=== PATIENT | female | born 1935 | race Caucasian/White ===

== ENCOUNTER 2018-10-04 06:42 | Inpatient (IN) | payer OTHER ==
[~2018-10-04] VITALS: Ht 162.6 cm; Wt 65.8 kg
[2018-10-04] VITALS (11 sets, daily range): BP systolic 128–156; BP diastolic 53–95
[2018-10-04] MEDS ORDERED: AMLODIPINE BESY10 MG PO (06:56)
[2018-10-04] MEDS ORDERED: ASPIR 8181 MG PO (06:57)
[2018-10-04] MEDS ORDERED: OMEPRAZOLE40 MG PO (06:59)
[2018-10-04] MEDS ORDERED: REMERON15 MG PO (06:59)
[2018-10-04] MEDS ORDERED: ADVAIR 250-501 EACH INH (07:01)
[2018-10-04] MEDS ORDERED: MAGOX 400400 MG PO (07:01)
[2018-10-04] MEDS ORDERED: ALPHAGAN P5 ML OPHTHALMIC (07:03)
[2018-10-04] MEDS ORDERED: DORZOLAMIDE 2%10 ML INTRAOCULR (07:03)
[2018-10-04 07:05] LABS: HEMOGLOBIN 11.3 gm/dL (12.0-15.0); MCH 24.5 pg (26.0-34.0); MCHC 31.4 g/dL (28.0-37.0); RBC 4.62 mil/uL (4.20-5.00); RDW 16.4 % (10.5-14.5); WBC 6.4 thou/uL (4.0-11.0)
[2018-10-04 07:15] LABS: CALCIUM 9.6 mg/dL (8.5-10.1); CREATININE 1.6 mg/dL (0.6-1.0); POTASSIUM 4.4 mmol/L (3.5-5.1)
--- NOTE | 2018-10-04 09:31 | EKG ---
[address] [address] ELECTROCARDIOGRAM REPORT Name: ELEAZAR SCOTT Room #: [facility]#: [id number] ������������������ Admission: 10/04/18 ������������������ Attend Phys: Kurt Torres MD, Discharge: ������������������ Date of : 31 Report #: [id number] ����������������������������������������������������������������� [id number] THIS REPORT FOR: //name// [facility] Test Date: 2018-10-04 Test Time: 07:19:51 Pat Name: ELEAZAR TYLER Department: Room: Gender: F Layer Up: Cierra CARRANZA : 1935 Requested By: Kurt Torres Order Number: [id number] MD: Brenden Miller Measurements Intervals [place] Rate: 77 P: 52 CT: 145 QRS: -15 QRSD: 74 T: 19 QT: 402 QTc: 455 Interpretive Statements Sinus rhythm Inferior infarct, old Compared to ECG 09/24/2007 12:27:44 Atrial abnormality no longer present Poor R-wave progression no longer present Electronically Signed On 10-04-2018 9:31:35 CDT by Brenden Miller [email or web address] ��������������������������������������������� <ELECTRONICALLY SIGNED> ���������������������������������������� By: Brenden Miller MD, [facility] ��������������������������������������������� 10/04/18 0931 8 8 Brenden Miller MD, [facility] /EPI
--- NOTE | 2018-10-04 17:00 | CATHLAB ---
[facility] [place] [address] INVASIVE PROCEDURE REPORT Name: ELEAZAR SCOTT Room #: 203-P [facility] IN [facility]#: [id number] ������������� Admission: 10/04/18 ������������� Attend Phys: Kurt Torres, Discharge: ��� ������������� ��� Date of : 31 Date of Service: 10/04/18 1659 �� Report #: [id number] �������� ��������������������������������������������[id number] THIS REPORT FOR: //name// APPROVED REPORT Study performed: 10/04/2018 09:25:17 Patient Details The patient is a 83 year-old female Event Personnel Kurt Torres Personnel Adviser Procedures Performed Right and Left Heart Cath w/or w/o Coronarie [id number] [facility] Indication Chest pain Procedure Narrative The Right Groin^ was infiltrated with 1% Lidocaine subcutaneous anesthesia. A Right Heart Catheterization was performed with a 7 Fr. [place] catheter and pressure were recorded. Cardiac outputs were obtained by the Thermal Dilution method. A PINNACLE 6FR TIF Sheath #[id number] sheath was inserted into the right femoral artery. Coronary angiography was performed using coronary diagnostic catheters. The right coronary system was accessed and visualized with a JR4 catheter. The left coronary system was accessed and visualized with a JL4 catheter. The left ventricle was accessed and visualized with a PIGTAIL catheter. Left ventricular/Aortic Valve gradient assessed via catheter pullback. Left ventriculogram was performed in SIMPSON projection. Closure device was deployed with a Fr 6F Fish closure. The patient tolerated the procedure well and there were no complications associated with the procedure. There was no hematoma. Intraoperative Conscious Sedation Sedation start time: 934 Case end Time: 1010 Fentanyl 25 mcg Versed 0.5 mg Fluoro Time: 10.20 minutes Dose: DAP 42545.90 cGycm2 235 mGy Contrast Type and Amount: Visipaque 90 ml [facility] [place] [address] INVASIVE PROCEDURE REPORT Name: ELEAZAR SCOTT Room #: 203-P [facility] IN .R.#: [id number] ������������� Admission: 10/04/18 ������������� Attend Phys: Kurt Torres, Discharge: ��� ������������� ��� Date of : 31 Date of Service: 10/04/18 1659 �� Report #: [id number] �������� ��������������������������������������������[id number] Hemodynamics The right atrial mean pressure is 16 mmHg. The right ventricular pressure is 22/11 mmHg. The pulmonary artery pressure is 50/16 mmHg with a mean of 31 mmHg. The mean pulmonary capillary wedge pressure is 19 mmHg. The aortic pressure is 164/58 mmHg with a mean of 76 mmHg. The left ventricular pressure is 170/15 mmHg with a mean of mmHg. The left ventricular end diastolic pressure is 20 mmHg. The cardiac output using thermo method is 4.80 L/min. The cardiac index using thermo method is 2.80 L/min/m2. PCI Technique Lesion Percutaneous coronary intervention was performed on the Superficial Femoral. Conclusion #1 successful right heart catheterization see hemodynamics above. #2 normal left jugular size and systolic function EF 60% #3 left main large free of disease giving rise to LAD and circumflex #4 LAD is moderately calcified and eccentric proximal lesion of 70-75% with otherwise preserved distal vessel moderately diseased extends around the apex #5 circumflex OM heavy proximal calcic H with mild disease 1 large OM branch well-preserved #6 dominant right coronary is occluded looks to be chronic total occlusion with some bridging collaterals faintly filling the PDA. The PDA is predominantly filled via brisk collateral flow from the left system. Recommendations and plan continue aggressive risk factor modification. This appears to be an old limited infarct with excellent collateral flow. There is moderate disease in the circumflex in the proximal LAD will follow. No current indication for intervention. Pulmonary pressures are not significantly elevated. Limited contrast was utilized. There will be a intervention to left popliteal distal SFA see Dr. Morrison's dictation ��������������������������������������������� <ELECTRONICALLY SIGNED> ���������������������������������������� By: Kurt Torres MD, FACC ��������������������������������������������� 10/04/181658 58 58 Kurt Torres MD, FACC /INF
--- NOTE | 2018-10-04 17:38 | NUR ---
PT ADMITED FROM CARDIAC CATH. ALERT AND ORIENTED. ADMISSION HX AND ASSESSMENT COMPLETED. VSS. RIGHT GROIN INCISION C/D/. NO HEMATOMA NOTED. PT UNABLE TO URINATE. BLADDER SCAN SHOWED 590. DR. VILLA NOTIFIED. ORDERS GIVEN TO STRAIGHT CATH. 650CC URINE OUTPUT WITH STRAIGHT CATH. PT INSTRUCTED TO IMMOBILIZE THE RIGHT LEG. ON BEDREST. DENIES HAVING PAIN OR DISCOMFORT. WILL CONTINUE TO MONITOR.
[2018-10-05 00:44] VITALS: BP 156/77
[2018-10-05 00:45] VITALS: BP 156/77
--- NOTE | 2018-10-05 02:37 | NUR ---
ASSESSMENT DOCUMENTED.PT RESTING IN NO ACUTE DISTRESS.VSS.RIGHT GROIN WITH CDI DRESSING.NO HEMATOMA NOTED.PULSES PRESENT 2+.UP TO BSC WITH ASSIST.SR ON MONITOR,IVF INFUSING.PT DENIES PAIN OR ANY DISTRESS AT THIS TIME.POSSIBLE DISCHARGE TODAY.WILL CONT TO MONITOR PER POC.
[2018-10-05 04:44] VITALS: BP 148/97
[2018-10-05 05:03] LABS: HEMATOCRIT 29.5 % (37.0-47.0); HEMOGLOBIN 9.5 gm/dL (12.0-15.0); MCH 25.3 pg (26.0-34.0); MCHC 32.4 g/dL (28.0-37.0); MCV 78.2 fL (80.0-100.0); RBC 3.77 mil/uL (4.20-5.00); RDW 16.6 % (10.5-14.5); WBC 5.9 thou/uL (4.0-11.0)
[2018-10-05 05:08] VITALS: BP 156/77
[2018-10-05 05:15] LABS: CALCIUM 8.5 mg/dL (8.5-10.1); CREATININE 1.3 mg/dL (0.6-1.0); POTASSIUM 4.2 mmol/L (3.5-5.1)
[2018-10-05 07:20] VITALS: BP 142/50
[2018-10-05] MEDS ORDERED: CRESTOR20 MG PO (07:50)
[2018-10-05] MEDS ORDERED: CLOPIDOGREL75 MG PO (07:50)
[2018-10-05] MEDS ORDERED: LIPITOR 20 MG T20 M1 PO (07:54)
[2018-10-05 10:08] VITALS: BP 142/50
--- NOTE | 2018-10-05 10:28 | NUR ---
ASSESSMENT DOCUMENTED. PT ALERT AND ORIENTED. VSS. DENIED HAVING PAIN OR DISCOMFORT. RIGHT GROIN INCISION C/D/I. NO HEMATOMA NOTED. ORDERS GIVEN TO DISCHARGE PT TO HOME. DISCHARGE INSTRUCTIONS GIVEN TO PT. PT VERBERLIZE UNDERSTANDING. PT LEFT THE FACILITY ACCOMPANIED BY THE DAUGHTER.
--- NOTE | 2018-10-05 10:36 | H ---
[facility] [place] [address] HISTORY AND PHYSICAL Name: ELEAZAR SCOTT Room #: 203-P [facility] M.R.#: [id number] Admission: 10/04/18 ������������������ Attend Phys: Kurt Torres MD, Discharge: 10/05/18 ������������������ Date of : 31 Report #: [id number] THIS REPORT FOR: //name// CC: Kurt Bear MD DATE OF SERVICE: 10/04/2018 HISTORY OF PRESENT ILLNESS: The patient is an 83-year-old female patient of geovani and Dr. Bear. Admitted today for right and left heart catheterization and lower extremity runoff. The patient previously was seen a couple of months ago for some dyspnea and shortness of breath. She had recently moved back to [place], but has now moved back to [place]. She complains of fatigue, some shortness of breath and some questionable chest pressure, although intermittent. Multiple risk factors for coronary artery disease, but does not have a history of an infarct. The nuclear stress test suggests limited inferior, inferoseptal infarct with izabela-infarct ischemia. There is no knowledge of any prior infarct, but she again had been in [place] for the last 10 years. Hypertension, hypercholesterolemia and some progressive shortness of breath. Had some underlying COPD and intermittent steroids over the past. Also, has paroxysmal AFib. MEDICATIONS: Amlodipine 10, baby aspirin, Azopt, Alphagan eyedrops, Advair Diskus, Remeron, Aleve p.r.n., Prilosec and metoprolol 25. PAST MEDICAL HISTORY: Positive for hypertension, paroxysmal atrial fibrillation. She is not anticoagulated; we do not have documentation of this since she has been back. Glaucoma, gout, pyelonephritis, anal fistulotomy, appendectomy, MALIKA-BSO and total knee. FAMILY HISTORY: Father had heart failure and hypertension. Brother did have premature coronary disease. SOCIAL HISTORY: She has moved back to [place]. Her daughter is Mago Sparks. No alcohol or tobacco use, never smoked. One cup of coffee a day. She has 2 daughters. She is . REVIEW OF SYSTEMS: Negative, except for stated above, with some intermittent urine area issues. ALLERGIES: No known drug allergies. PHYSICAL EXAMINATION: GENERAL: She is pleasant and alert. VITAL SIGNS: Pulse 70s, blood pressure 148/82. [facility] [address] [place] [address] HISTORY AND PHYSICAL Name: ELEAZAR SCOTT Room #: 203-P [facility].#: [id number] Admission: 10/04/18 ������������������ Attend Phys: Kurt Torres MD, Discharge: 10/05/18 ������������������ Date of : 31 Report #: [id number] HEENT: Eyes reveal no xanthelasmas. Pharynx is clear. NECK: Shows preserved upstrokes, without JVD or bruits. LUNGS: Clear, slightly prolonged phase. CARDIAC: Regular rate and rhythm, S1, S2. Faint holosystolic murmur. ABDOMEN: Soft. No HSM or abdominal bruit. EXTREMITIES: Reveal trace of edema. Distal pulses are diminished. I cannot palpate the left DP and PT. NEUROLOGIC: Nonfocal. SKIN: Warm and dry. There were some mild venous stasis changes. No ulcers. ASSESSMENT: 1. Coronary artery disease with nuclear test suggesting old inferior infarct (of unknown duration). 2. Hypertension. 3. History of paroxysmal atrial fibrillation, although nothing documented since she has returned to [place]. 4. Peripheral vascular disease with a left popliteal high-grade stenosis, with some stable claudication. 5. Hypercholesterolemia. 6. Chronic kidney disease. RECOMMENDATIONS AND PLAN: We will proceed to the catheterization lab for right and left heart catheterization. There is some chronic kidney disease here, with a creatinine of 1.6. IV hydration has been given. We will limit contrast. Risks, benefits and alternatives discussed with the patient and her daughter. We will have further recommendations after this procedure. Thank you for asking us to assist in the care of this patient. ��������������������������������������������� <ELECTRONICALLY SIGNED> ���������������������������������������� By: Kurt Torres MD, FACC ��������������������������������������������� 10/05/18 1036 1012 1100 Kurt Torres MD, FACC /nt
== END 2018-10-05 10:25 | disposition home or self-care (01) | DRG 271 ==
LOC: CATH 06:42 → 2N 13:22 → CATH 15:29 → ENTRNSPT 10-05 10:16 → EDTRNSPTSTS 10-05 10:22 → 2N 10-05 10:25
PROVIDERS: Nuclear Medicine Nuclear Cardiology; ADMIT Internal Medicine Cardiovascular Disease
PROC: B211YZZ Fluoroscopy of Multiple Coronary Arteries using Other Contrast (ICD-10-PCS; principal; 2018-10-04)
PROC: 04CN3ZZ Extirpation of Matter from Left Popliteal Artery, Percutaneous Approach (ICD-10-PCS; principal; 2018-10-04)
PROC: 047N3D1 Dilation of Left Popliteal Artery with Intraluminal Device, using Drug-Coated Balloon, Percutaneous Approach (ICD-10-PCS; principal; 2018-10-04)
PROC: 4A023N8 Measurement of Cardiac Sampling and Pressure, Bilateral, Percutaneous Approach (ICD-10-PCS; principal; 2018-10-04)
PROC: B215YZZ Fluoroscopy of Left Heart using Other Contrast (ICD-10-PCS; principal; 2018-10-04)
PROC: B4181ZZ Fluoroscopy of Bilateral Renal Arteries using Low Osmolar Contrast (ICD-10-PCS; principal; 2018-10-04)
PROC: B4101ZZ Fluoroscopy of Abdominal Aorta using Low Osmolar Contrast (ICD-10-PCS; principal; 2018-10-04)
DX: I73.9 Peripheral vascular disease, unspecified (principal); D62 Acute posthemorrhagic anemia; I25.10 Atherosclerotic heart disease of native coronary artery without angina pectoris; E78.00 Pure hypercholesterolemia, unspecified; I48.0 Paroxysmal atrial fibrillation; H40.9 Unspecified glaucoma; I12.9 Hypertensive chronic kidney disease with stage 1 through stage 4 chronic kidney disease, or unspecified chronic kidney disease; M10.9 Gout, unspecified; N18.9 Chronic kidney disease, unspecified; S30.1XXA Contusion of abdominal wall, initial encounter; X58.XXXA Exposure to other specified factors, initial encounter; Y93.89 Activity, other specified; Y92.89 Other specified places as the place of occurrence of the external cause; Y99.8 Other external cause status; Z79.82 Long term (current) use of aspirin; Z79.899 Other long term (current) drug therapy; Z90.49 Acquired absence of other specified parts of digestive tract; Z90.722 Acquired absence of ovaries, bilateral; Z82.49 Family history of ischemic heart disease and other diseases of the circulatory system
CPT/HCPCS: 10081

== ENCOUNTER 2019-02-01 14:21 | Inpatient (IN) | payer OTHER ==
[~2019-02-01] VITALS: Ht 162.6 cm; Wt 64.9 kg
[~2019-02-01 14:21] MED LIST: ADVAIR 250-501 EACH INH; ALPHAGAN P5 ML OPHTHALMIC; AMLODIPINE BESY10 MG PO; ASPIR 8181 MG PO; CLOPIDOGREL75 MG PO; CRESTOR20 MG PO; DORZOLAMIDE 2%10 ML INTRAOCULR; LIPITOR 20 MG T20 M1 PO; MAGOX 400400 MG PO; OMEPRAZOLE40 MG PO; REMERON15 MG PO
[2019-02-01 14:25] VITALS: BP 127/61
[2019-02-01 15:05] LABS: HEMATOCRIT 33.8 % (37.0-47.0); HEMOGLOBIN 10.7 gm/dL (12.0-15.0); MCH 24.2 pg (26.0-34.0); MCHC 31.6 g/dL (28.0-37.0); MCV 76.8 fL (80.0-100.0); RBC 4.4 mil/uL (4.20-5.00); RDW 17.5 % (10.5-14.5); WBC 6.3 thou/uL (4.0-11.0)
[2019-02-01 15:11] LABS: ANION GAP 11 mmol/L (7-16); BUN 22 mg/dL (7-18); CALCIUM 9.4 mg/dL (8.5-10.1); CHLORIDE 106 mmol/L (98-107); CO2 22 mmol/L (21-32); CREATININE 1.5 mg/dL (0.6-1.0); GLUCOSE 104 mg/dL (74-106); SODIUM 139 mmol/L (136-145)
[2019-02-01 15:19] LABS: PROTIME 10.7 Seconds (9.3-11.4); TROPONIN-I <0.06 ng/mL (<0.06)
[2019-02-01] MEDS ORDERED: TOPROL XL25 MG PO (15:32)
[2019-02-01] MEDS ORDERED: XARELTO15 MG PO (15:33)
[2019-02-01 18:26] VITALS: BP 136/56
[2019-02-01 22:58] VITALS: BP 146/60
[2019-02-01 23:30] VITALS: BP 153/68
[2019-02-02] MEDS ORDERED: LOSARTAN POTAS100 MG PO (00:17)
[2019-02-02] MEDS ORDERED: ASPIR 8181 MG PO (00:19)
[2019-02-02] MEDS ORDERED: NORVASC5 MG PO (00:19)
[2019-02-02] MEDS ORDERED: OMEPRAZOLE40 MG PO (00:23)
[2019-02-02] MEDS ORDERED: MAGOX 400400 MG PO (00:23)
[2019-02-02] MEDS ORDERED: LIPITOR 20 MG T20 M1 PO (00:24)
[2019-02-02] MEDS ORDERED: DORZOLAMIDE 2%10 ML OPHTHALMIC (00:25)
[2019-02-02 04:38] VITALS: BP 141/71
[2019-02-02 04:48] LABS: BASOPHILS 1.3 % (0.0-2.0); EOSINOPHILS 3.8 % (0.0-3.0); HEMATOCRIT 30.3 % (37.0-47.0); HEMOGLOBIN 9.7 gm/dL (12.0-15.0); LYMPHOCYTES 21.8 % (24.0-44.0); MCH 24.5 pg (26.0-34.0); MCV 76.6 fL (80.0-100.0); MONOCYTES 8.5 % (1.0-8.0); PLATELET COUNT 154 thou/uL (150-400); POLYS 64.6 % (36.0-66.0); RBC 3.96 mil/uL (4.20-5.00); RDW 17.3 % (10.5-14.5); WBC 6.2 thou/uL (4.0-11.0)
[2019-02-02 04:55] LABS: ANION GAP 12 mmol/L (7-16); BUN 21 mg/dL (7-18); CALCIUM 8.6 mg/dL (8.5-10.1); CHLORIDE 109 mmol/L (98-107); CHOLESTEROL 107 mg/dL (<200); CO2 22 mmol/L (21-32); CREATININE 1.3 mg/dL (0.6-1.0); GLUCOSE 103 mg/dL (74-106); HDL CHOLESTEROL 35 mg/dL (>40); LDL CHOLESTEROL 53 mg/dL (<100); POTASSIUM 4.1 mmol/L (3.5-5.1); SODIUM 143 mmol/L (136-145); TC:HDL 3.1 Ratio (Not establshd); TRIGLYCERIDE 97 mg/dL (<150); VLDL 19 mg/dL (<40)
[2019-02-02 04:57] LABS: SERUM ASSESSMENT Clear
--- NOTE | 2019-02-02 07:30 | NUR ---
PATIENT IS ALERT AND ORIENTED. NIH 1. PATIENT UP TIMES ONE. PATIENT PENDING MRI AND ECHO. PATIENT DENIES PAIN. PATIENT IS RESTING COMFORTABLY IN BED. WCM. PATIENT IS PROGRESSING TO GOALS
[2019-02-02 07:38] VITALS: BP 140/74
[2019-02-02] MEDS ORDERED: DORZOLAMIDE HCL10 ML OPHTHALMIC (08:52)
[2019-02-02] MEDS ORDERED: ALPHAGAN P15 ML OPHTHALMIC (08:53)
--- NOTE | 2019-02-02 10:55 | EKG ---
[address] [place] [address] ELECTROCARDIOGRAM REPORT Name: ELEAZAR SCOTT Room #: 358-P [facility] IN M.R.#: [id number] Admission: 02/01/19 Attend Phys: Raphael Shah MD Discharge: Date of : 31 Report #: [id number] THIS REPORT FOR: //name// [facility] ED Test Date: 2019-02-01 Test Time: 16:08:59 Pat Name: ELEAZAR DANIELSGESS Department: Room: [facility] Gender: F Logger All Round: [place] : 1935 Requested By: Mario Mendoza Order Number: [id number] MD: Shashi Izaguirre Measurements Intervals [place] Rate: 75 P: 58 OK: 132 QRS: -18 QRSD: 82 T: 23 QT: 400 QTc: 447 Interpretive Statements Sinus rhythm Multiple premature complexes, vent & supraven Probable left atrial enlargement Inferior infarct, old Compared to ECG 10/04/2018 07:19:51 No significant changes Electronically Signed On 02-02-2019 10:55:06 CDT by Shashi Izaguirre [email or web address] <ELECTRONICALLY SIGNED> By: Shashi Izaguirre MD 02/02/19 1055 1608 1608 Shashi Izaguirre MD /CASSI
[2019-02-02 11:11] VITALS: BP 144/70
[2019-02-02 15:18] VITALS: BP 167/74
--- NOTE | 2019-02-02 15:56 | 2DMMODE ---
[facility] [address] [facility] [place] [address] 2 D/M-MODE ECHOCARDIOGRAM Name: ELEAZAR SCOTT Room #: 358-P [facility] IN M.R.#: [id number] Admission: 02/01/19 Attend Phys: Raphael Shah, Discharge: Date of : 31 Date of Service: 02/02/19 1556 Report #: [id number] THIS REPORT FOR: //name// APPROVED REPORT Study performed: 02/02/2019 11:38:54 EXAM: Comprehensive 2D, Doppler, and color-flow Echocardiogram Patient Location: Bedside Room #: 358 Status: on-call BSA: 1.71 HR: 75 bpm BP: 140/74 mmHg Rhythm: NSR Other Information Study Quality: Adequate Risk Factors: Cardiac Risk Factors: HTN, Hyperlipidemia Indications Atrial Fibrillation CAD Possible CVA/TIA Echo Enhancing Agent Indication: Rule Out Septal Defect Agent(s) / Amount(s) Used: Agitated Saline 7 cc 2D Dimensions IVSd: 13.13 (7-11mm) LVOT Diam: 18.00 (18-24mm) LVDd: 34.77 mm PWd: 10.94 (7-11mm) Ascending Ao: 32.10 (22-36mm) LVDs: 23.84 (25-40mm) Aortic Root: 28.54 mm LV Single Plane 4CH: 55.06 % LV Single Plane 2CH: 58.48 % Biplane EF: 55.9 % Volumes Left Atrial Volume (Systole) Single Plane 4CH: 42.84 mL Single Plane 2CH: 34.31 mL LA ESV Index: 25.00 mL/m2 [facility] [address] [place] [address] 2 D/M-MODE ECHOCARDIOGRAM Name: ELEAZAR SCOTT Room #: 358-P [facility] IN [facility]#: [id number] Admission: 02/01/19 Attend Phys: Raphael Shah, Discharge: Date of : 31 Date of Service: 02/02/19 1556 Report #: [id number] Aortic Valve AoV Peak Faheem.: 1.87 m/s AO Peak Gr.: 15.35 mmHg LVOT Max P.69 mmHg LVOT Max V: 1.08 m/s ELIJAH Vmax: 1.53 cm2 AI Vmax: 3.85 m/s AI [place]: 1.56 m/s2 AI PHT: 719.76 ms Mitral Valve E/A Ratio: 0.5 MV Decel. Time: 212.04 ms MV E Max Faheem.: 0.67 m/s MV A Faheem.: 1.47 m/s MV PHT: 61.49 ms IVRT: 87.66 ms TDI E/Lateral E': 13.40 E/Medial E': 13.40 Medial E' Faheem.: 0.05 m/s Lateral E' Faheem.: 0.05 m/s Pulmonary Valve PV Peak Faheem.: 0.96 m/s PV Peak Gr.: 3.69 mmHg Pulmonary Vein P Vein S: 0.79 m/s P Vein A: 0.34 m/s P Vein D: 0.33 m/s P Vein A Dur.: 107.3 msec P Vein S/D Ratio: 2.39 Tricuspid Valve TR Peak Faheem.: 2.42 m/s RAP Estimate: 7.00 mmHg TR Peak Gr.: 23.51 mmHg PA Pressure: 31.00 mmHg Left Ventricle The left ventricle is normal size. There is normal LV segmental wall motion. Mild concentric left ventricular hypertrophy. Left ventricular systolic function is normal. The left ventricular ejection fraction is within the normal range. LVEF is 55-60%. Mild diastolic dysfunction is present (impaired relaxation pattern). Right Ventricle The right ventricle is normal size. The right ventricular systolic [facility] [address] [place] [address] 2 D/M-MODE ECHOCARDIOGRAM Name: ELEAZAR SCOTT Room #: 358-P [facility] IN ..#: [id number] Admission: 02/01/19 Attend Phys: Raphael Shah, Discharge: Date of : 31 Date of Service: 02/02/19 1556 Report #: [id number] function is normal. Atria The left atrium size is normal. Injection of bubbles documented no interatrial shunt. The right atrium size is normal. Aortic Valve The Aortic valve is sclerotic. Mild aortic regurgitation. There is no aortic valvular stenosis. Mitral Valve The mitral valve is normal in structure. Mild to moderate mitral regurgitation. No evidence of mitral valve stenosis. Tricuspid Valve The tricuspid valve is normal in structure. Mild tricuspid regurgitation. Pulmonary artery pressure is 31 mmHg. Pulmonic Valve The pulmonary valve is normal in structure. There is no pulmonic valvular regurgitation. Great Vessels The aortic root is normal in size. The ascending aorta is normal in size. IVC is normal in size and collapses >50% with inspiration. Pericardium There is no pericardial effusion. <Conclusion> The left ventricle is normal size. Mild concentric left ventricular hypertrophy. Left ventricular systolic function is normal. Mild diastolic dysfunction is present (impaired relaxation pattern). The right ventricle is normal size. The left atrium size is normal. Injection of bubbles documented no interatrial shunt. The Aortic valve is sclerotic. [place] [address] 2 D/M-MODE ECHOCARDIOGRAM Name: ELEAZAR SCOTT Room #: 358-P [facility] IN M.R.#: [id number] Admission: 02/01/19 Attend Phys: Raphael Shah, Discharge: Date of : 31 Date of Service: 02/02/19 1556 Report #: [id number] Mild to moderate mitral regurgitation. Mild tricuspid regurgitation. Pulmonary artery pressure is 31 mmHg. <ELECTRONICALLY SIGNED> By: Shashi Izaguirre MD 02/02/19 1556 1556 1556 Shashi Izaguirre MD /INF
[2019-02-02] MEDS ORDERED: ACETAMINOPHEN325 M1 PO (18:13)
[2019-02-02] MEDS ORDERED: COLACE 100 MG100 MG PO (18:13)
--- NOTE | 2019-02-02 18:52 | NUR ---
ASSUMED PATIENT CARE AT 0700. A/O X4. MRI MRI NEGATIVE FOR STROKE. WALKED WITH PATIENT IN HALLWAY WITH STEADY GAIT. NO DIFFICULT NOTED TRANSFER TO BED AND CHAIR. PATIENT STILL HAS DOUBLE VISION. WILL DC TO HOME SOON.
[2019-02-02 19:49] VITALS: BP 140/64
[2019-02-03 04:03] VITALS: BP 144/82
--- NOTE | 2019-02-03 05:32 | NUR ---
PATIENT IS PENDING DC. PATIENT IS ALERT AND ORIENTED. PATIENT IS SBA WITH WALKER. STROKE WAS NEG. PATIENT WILL SEE EYE DOCTOR OUTPATIENT. PATIENT IS NSR. PATIENT DENEIS PAIN. PATIENT IS RESTING COMFORTABLY IN BED. WCM. PATIENT IS PROGRESSING TO GOALS.
[2019-02-03 07:20] VITALS: BP 147/87
[2019-02-03 07:27] VITALS: BP 144/82
--- NOTE | 2019-02-03 10:29 | NUR ---
PT ALERT AND ORIETED TIMES FOUR. VSS, SR ON TELE. DISCHARGE ORDERS WRITTEN ON PT. DISCHARGE INSTRUCTIONS GIVEN TO PT AND SHE VERBALIZED UBDERSTANDING. PT WAS ESCORTED OFF THE UNIT PER STAFF WITH ALL PERSONAL BELONGINGS. PT WAS PICKED UP BY HER DAUGHTER.
--- NOTE | 2019-02-04 13:01 | NUR ---
RINA called Jaja at [facility] and Dixie verified they received referral and sicharge papers on patient, they will take patient, who dc on Monday02/03/19.
== END 2019-02-03 10:34 | disposition home health service (06) | DRG 92 ==
LOC: ER 14:21 → EROBS 17:55 → 3W 23:00
PROVIDERS: Emergency Medicine; Nurse Practitioner; ADMIT Internal Medicine
DX: H51.22 Internuclear ophthalmoplegia, left eye (principal); N17.9 Acute kidney failure, unspecified; K21.9 Gastro-esophageal reflux disease without esophagitis; J45.909 Unspecified asthma, uncomplicated; I73.9 Peripheral vascular disease, unspecified; N18.3 Chronic kidney disease, stage 3 (moderate); I48.0 Paroxysmal atrial fibrillation; I12.9 Hypertensive chronic kidney disease with stage 1 through stage 4 chronic kidney disease, or unspecified chronic kidney disease; H40.9 Unspecified glaucoma; E78.5 Hyperlipidemia, unspecified; I48.2 Chronic atrial fibrillation; I67.9 Cerebrovascular disease, unspecified; I25.10 Atherosclerotic heart disease of native coronary artery without angina pectoris; Z96.653 Presence of artificial knee joint, bilateral; Z96.1 Presence of intraocular lens; Z87.891 Personal history of nicotine dependence; Z87.440 Personal history of urinary (tract) infections; Z98.42 Cataract extraction status, left eye; Z95.820 Peripheral vascular angioplasty status with implants and grafts; Z89.421 Acquired absence of other right toe(s); Z90.49 Acquired absence of other specified parts of digestive tract; Z90.710 Acquired absence of both cervix and uterus; Z79.01 Long term (current) use of anticoagulants; Z79.51 Long term (current) use of inhaled steroids; Z79.899 Other long term (current) drug therapy
CPT/HCPCS: 10879

== ENCOUNTER → 2019-05-10 | Outpatient (CLI) | payer OTHER ==
[~2019-05-10] VITALS: Ht 162.6 cm; Wt 63.5 kg
[~2019-05-10] MED LIST changes: +ACETAMINOPHEN325 M1 PO; +ALPHAGAN P15 ML OPHTHALMIC; +COLACE 100 MG100 MG PO; +DORZOLAMIDE 2%10 ML OPHTHALMIC; +DORZOLAMIDE HCL10 ML OPHTHALMIC; +LOSARTAN POTAS100 MG PO; +NORVASC10 MG PO; +NORVASC5 MG PO; +PROLENSA3 ML OPHTHALMIC; +TOPROL XL25 MG PO; +XARELTO15 MG PO
--- NOTE | ~2019-05-10 | P ---
[facility] [place] [address] [place] [address] PROCEDURE REPORT Name: ELEAZAR SCOTT Room #: [facility]#: [id number] Admission: 05/10/19 Attend Phys: Albert Saini Discharge: Date of : 31 Report #: [id number] THIS REPORT FOR: //name// CC: Albert Bear DATE OF SERVICE: 05/10/2019 PROCEDURE PERFORMED: Upper endoscopy with esophageal dilation. HISTORY OF PRESENT ILLNESS: The patient is an 83-year-old female with a history of dysphagia. This has been ongoing for several weeks. She states pills can get stuck. It tends to be high in her throat. She does have a history of heartburn. She is on omeprazole. She is also on Xarelto for history of atrial fibrillation. This has been held for the last day and a half. She denies any odynophagia. No previous history of upper endoscopy. DESCRIPTION OF PROCEDURE: The risks and benefits of the procedure were explained to the patient, those risks including but not limited to bleeding, perforation and the risk of sedation. She understood these risks and gave informed consent. Sedation was given using propofol per anesthesia. Next, using a standard Olympus upper endoscope, the scope was placed in the patient's mouth and advanced under direct vision through the esophagus, stomach and into the second portion of the duodenum. The larynx was normal in appearance. The upper and mid esophagus was normal. In the distal esophagus, grade C erosive esophagitis was noted. No obvious stricture was seen. Upon entering the stomach, a small hiatal hernia was noted. Overall, the gastric mucosa was normal. The pylorus was normal and patent. The duodenal bulb, first and second portion were all normal. The scope was then brought back up into the patient's stomach and a Savary guidewire was inserted through the scope, leaving the guidewire in place as the scope was then withdrawn. Next, dilation started at 45-Saudi Arabian, 48-Saudi [place] and then eventually 51-[place] observing for any signs of mucosal tear in between each dilation. There was no evidence of mucosal tear after dilations. At this point, the wire was removed. The scope was then withdrawn and the procedure terminated. The patient tolerated the procedure well. IMPRESSION: 1. Grade C erosive esophagitis. 2. Hiatal hernia. 3. Otherwise, normal upper endoscopy. RECOMMENDATIONS: 1. Observe the patient post dilation. 2. The patient is already taking omeprazole 40 mg per day, and despite this has [address] [address] PROCEDURE REPORT Name: ELEAZAR SCOTT Room #: [facility] SidraShanae#: [id number] Admission: 05/10/19 Attend Phys: Albert Saini Discharge: Date of : 31 Report #: [id number] esophagitis, therefore we will add Carafate 1 gram p.o. t.i.d. liquid. Thank you for allowing me to participate in her care. By: 1158 1225 Albert Drummond MD /nt
== END | disposition home or self-care (01) ==
LOC: GI 09:21
DX: R13.19 Other dysphagia (principal); K22.10 Ulcer of esophagus without bleeding; K44.9 Diaphragmatic hernia without obstruction or gangrene; K21.9 Gastro-esophageal reflux disease without esophagitis; I12.9 Hypertensive chronic kidney disease with stage 1 through stage 4 chronic kidney disease, or unspecified chronic kidney disease; N18.3 Chronic kidney disease, stage 3 (moderate); I48.91 Unspecified atrial fibrillation; I73.9 Peripheral vascular disease, unspecified; J45.909 Unspecified asthma, uncomplicated; E78.5 Hyperlipidemia, unspecified; H40.9 Unspecified glaucoma; Z90.49 Acquired absence of other specified parts of digestive tract; Z90.710 Acquired absence of both cervix and uterus; Z98.890 Other specified postprocedural states; Z98.42 Cataract extraction status, left eye; Z87.891 Personal history of nicotine dependence; Z86.73 Personal history of transient ischemic attack (TIA), and cerebral infarction without residual deficits; Z79.01 Long term (current) use of anticoagulants; Z96.1 Presence of intraocular lens; Z96.653 Presence of artificial knee joint, bilateral
CPT/HCPCS: 62110; 62900

== ENCOUNTER → 2019-08-01 | Outpatient (CLI) | payer OTHER | LOC: SJCVC 14:50 | DX: R94.31 Abnormal electrocardiogram [ECG] [EKG] (principal); I48.0 Paroxysmal atrial fibrillation; E78.00 Pure hypercholesterolemia, unspecified; M10.9 Gout, unspecified; Z82.49 Family history of ischemic heart disease and other diseases of the circulatory system; Z87.891 Personal history of nicotine dependence; Z79.899 Other long term (current) drug therapy ==

== ENCOUNTER → 2020-01-21 | Outpatient (CLI) | payer OTHER | LOC: SJCVCIMAG 08:29 | PROVIDERS: ATTEND Nuclear Medicine Nuclear Cardiology | DX: I70.203 Unspecified atherosclerosis of native arteries of extremities, bilateral legs (principal); I65.23 Occlusion and stenosis of bilateral carotid arteries; Z87.891 Personal history of nicotine dependence ==

== ENCOUNTER → 2020-01-30 | Outpatient (CLI) | payer OTHER | LOC: SJCVCIMAG 10:10 | PROVIDERS: ATTEND Internal Medicine Cardiovascular Disease | DX: I08.3 Combined rheumatic disorders of mitral, aortic and tricuspid valves (principal); R00.0 Tachycardia, unspecified; E78.5 Hyperlipidemia, unspecified; I25.10 Atherosclerotic heart disease of native coronary artery without angina pectoris; I48.0 Paroxysmal atrial fibrillation; I65.23 Occlusion and stenosis of bilateral carotid arteries; I73.9 Peripheral vascular disease, unspecified; I10 Essential (primary) hypertension; E78.00 Pure hypercholesterolemia, unspecified ==

== ENCOUNTER → 2020-11-09 | Outpatient (CLI) | payer OTHER | LOC: SJCVCIMAG 10-07 08:42 | PROVIDERS: ATTEND Internal Medicine Cardiovascular Disease | DX: I70.203 Unspecified atherosclerosis of native arteries of extremities, bilateral legs (principal); R94.31 Abnormal electrocardiogram [ECG] [EKG]; I48.0 Paroxysmal atrial fibrillation; I49.3 Ventricular premature depolarization; I77.9 Disorder of arteries and arterioles, unspecified; I25.10 Atherosclerotic heart disease of native coronary artery without angina pectoris; I10 Essential (primary) hypertension; E78.00 Pure hypercholesterolemia, unspecified; I48.11 Longstanding persistent atrial fibrillation; H40.9 Unspecified glaucoma; M10.9 Gout, unspecified; E53.8 Deficiency of other specified B group vitamins; Z90.49 Acquired absence of other specified parts of digestive tract; Z79.899 Other long term (current) drug therapy; Z87.891 Personal history of nicotine dependence; Z82.49 Family history of ischemic heart disease and other diseases of the circulatory system ==

== ENCOUNTER → 2021-02-26 | Outpatient (CLI) | payer OTHER ==
[~2021-02-26] VITALS: Ht 162.6 cm; Wt 63.0 kg
[~2021-02-26] MED LIST changes: +BENTYL 10 MG CA10 MG PO; +CARAFATE 1 GM TA1 GM PO; +NEURONTIN100 MG PO; +TYLENOL325 M1 PO; +VITAMIN B122500 MCG PO
--- NOTE | 2021-02-26 13:48 | P ---
[facility] [place] [address] PROCEDURE REPORT Name: ELEAZAR SCOTT Room #: [facility] [id number] Admission: 02/26/21 Attend Phys: Albert Saini Discharge: Date of : 31 Report #: [id number] THIS REPORT FOR: cc: Juliano Bear MD, Rene P. MD McElhinney, Christian C. MD ~ cc: Juliano Bear MD DATE OF SERVICE: 02/26/2021 PROCEDURE PERFORMED: Upper endoscopy with esophageal dilation. HISTORY OF PRESENT ILLNESS: The patient is an 85-year-old female with a history of gastroesophageal reflux disease. Last upper endoscopy was performed in 04/2019 for dysphagia. At that time, she was on omeprazole 40 mg a day and was noted to have grade C erosive esophagitis. Dilation was performed which was helpful. I added Carafate at that time, which she has been taking on a fairly regular basis. She does report recent diarrhea reportedly Hemoccult positive stool and possible anemia. She believes her last colonoscopy was approximately 8-10 years ago. DESCRIPTION OF PROCEDURE: The risks and benefits of the procedure were explained to the patient, those risks including but not limited to bleeding, perforation and the risk of sedation. She understood these risks and gave informed consent. Sedation was given using propofol per anesthesia. Next, using a standard Olympus upper endoscope, the scope was placed in the patient's mouth and advanced under direct vision through the esophagus, stomach and into the second portion of the duodenum. The larynx was normal in appearance. The esophagus was normal throughout. The GE junction was normal. No evidence of esophagitis or stricture. Upon entering the stomach, a small hiatal hernia was noted. Overall, the gastric mucosa was normal. The pylorus was normal and patent. The duodenal bulb, first and second portion were all normal. The scope was then brought back up into the patient's stomach and a Savary guidewire was inserted through the scope, leaving the guidewire in place as the scope was then withdrawn. Next, a 51-Faroese Savary dilation of the esophagus was performed without difficulty. The wire and dilator were removed. The scope was reintroduced into the patient's stomach. There was no evidence of mucosal tear after dilation. The scope was then withdrawn and the procedure terminated. The patient tolerated the procedure well. IMPRESSION: 1. Small hiatal hernia. 2. Otherwise, normal upper endoscopy. RECOMMENDATIONS: 1. Continue current regimen of Protonix and Carafate. [address] [address] PROCEDURE REPORT Name: ELEAZAR SCOTT Room #: REG Eva Mckenzie#: [id number] Admission: 02/26/21 Attend Phys: Albert Saini Discharge: Date of : 31 Report #: [id number] 2. Observe the patient post-dilation. 3. We discussed considering colonoscopy since the patient has a history of anemia, heme-positive stools and diarrhea recently and last colonoscopy was approximately 8-10 years ago. Thank you for allowing me to participate in her care. <ELECTRONICALLY SIGNED> By: Albert Drummond MD 02/26/21 1348 [id number] Albert Drummond MD /nt
== END | disposition home or self-care (01) ==
LOC: GI 07:29
PROVIDERS: ATTEND Specialist
DX: K21.9 Gastro-esophageal reflux disease without esophagitis (principal); K44.9 Diaphragmatic hernia without obstruction or gangrene; R13.10 Dysphagia, unspecified; R19.7 Diarrhea, unspecified; I12.9 Hypertensive chronic kidney disease with stage 1 through stage 4 chronic kidney disease, or unspecified chronic kidney disease; N18.9 Chronic kidney disease, unspecified; I48.91 Unspecified atrial fibrillation; I73.9 Peripheral vascular disease, unspecified; I25.2 Old myocardial infarction; J45.909 Unspecified asthma, uncomplicated; E78.5 Hyperlipidemia, unspecified; H40.9 Unspecified glaucoma; E78.00 Pure hypercholesterolemia, unspecified; Z98.890 Other specified postprocedural states; Z79.899 Other long term (current) drug therapy; Z96.653 Presence of artificial knee joint, bilateral; Z86.73 Personal history of transient ischemic attack (TIA), and cerebral infarction without residual deficits; Z20.822 Contact with and (suspected) exposure to COVID-19; Z90.710 Acquired absence of both cervix and uterus; Z90.49 Acquired absence of other specified parts of digestive tract
CPT/HCPCS: 62110; 62900

== ENCOUNTER → 2021-06-14 | Outpatient (CLI) | payer OTHER | END | disposition home or self-care (01) | LOC: SJCVCIMAG 09:17 | PROVIDERS: ATTEND Nuclear Medicine Nuclear Cardiology | DX: R94.31 Abnormal electrocardiogram [ECG] [EKG] (principal); I65.23 Occlusion and stenosis of bilateral carotid arteries; I70.201 Unspecified atherosclerosis of native arteries of extremities, right leg; I65.29 Occlusion and stenosis of unspecified carotid artery; I25.10 Atherosclerotic heart disease of native coronary artery without angina pectoris; I48.0 Paroxysmal atrial fibrillation; I10 Essential (primary) hypertension; E78.00 Pure hypercholesterolemia, unspecified; I48.11 Longstanding persistent atrial fibrillation; I73.9 Peripheral vascular disease, unspecified; I77.9 Disorder of arteries and arterioles, unspecified; I49.3 Ventricular premature depolarization; Z82.49 Family history of ischemic heart disease and other diseases of the circulatory system; Z79.899 Other long term (current) drug therapy; Z87.891 Personal history of nicotine dependence ==